=== PATIENT | female | born 1965 | race Hispanic/Latino ===

== ENCOUNTER 2021-04-08 10:30 | Inpatient (IN) | payer SELFPAY ==
[2021-04-08] MEDS ORDERED: INSULIN REGULAR IN 0.9 % NACL 100 UNIT/100 ML BAG ONE (11:06)
[2021-04-08] MEDS ORDERED: Acetaminophen 500 MG TAB ONE (11:06)
[2021-04-08 11:29] LABS: Actual Bicarbonate (HCO3v) 17 mEq/L (22-28); Analyzer IN Cardio ER; Base Excess -7.1 mEq/L (-2.0 to +3.0); Calcium, Ionized (venous) 1.09 mmol/L (1.16-1.32); Chloride (VBG) 116 mmol/L (98-106); Hemoglobin (Hb) 12.9 g/dL (11.7-16.0); Potassium (VBG) 4.24 mmol/L (3.70-5.30); Sodium 143.7 mmol/L (133-146); pH (venous) 7.35 (7.32-7.43)
[2021-04-08 11:32] LABS: Hemoglobin 12.5 g/dL (12.0-16.0); Mean Corpuscular Hemoglobin 27.9 pg (27.0-31.0); Mean Corpuscular Volume 84.8 fL (78.0-98.0); Mean Platelet Volume 7.8 fL (7.4-10.4); Platelet Count 256 thou/uL (130-400); RBC Distribution Width 13.1 % (11.5-14.5); Red Blood Cell (RBC) Count 4.49 mill/uL (4.20-5.40); White Blood Cell (WBC) Count 14.5 thou/uL (4.8-10.8)
[2021-04-08] MEDS ORDERED: Benzonatate 100 MG CAP ONE (11:37)
[2021-04-08] MEDS ORDERED: D5 1/2 NS w/20 mEq KCL 1,000 ML IV PRN (11:43)
[2021-04-08] MEDS ORDERED: Ondansetron ODT 4 MG TAB PO PRN (11:43)
[2021-04-08] MEDS ORDERED: NS 0.9% w/ 20 MEQ KCL 1,000 ML IV PRN ×2 (11:43)
[2021-04-08] MEDS ORDERED: Sodium Chloride 0.9% 1,000 ML IV PRN ×2 (11:43)
[2021-04-08] MEDS ORDERED: Dextrose 5 %-0.45 % NaCl 1,000 ML IV PRN (11:43)
[2021-04-08] MEDS ORDERED: Electrolyte Replacement Protocol 1 EACH IVPB ONE (11:43)
[2021-04-08] MEDS ORDERED: HUMULIN R 100 UNITS in Sodium Chloride 0.9% 100 ML IVPB SCH (11:45)
[2021-04-08 11:50] LABS: Band 15 % (5-11); Lymphocytes 4 % (21-51); MDiff Complete? YES; Monocytes 1 % (0-10); Neutrophil 80 % (42-75); Platelet Morphology Comment Appears Adequate; RBC Morphology Normal
[2021-04-08 12:01] LABS: ALT (SGPT) 27 U/L (8-55); AST (SGOT) 36 U/L (5-34); Albumin 2.7 g/dL (3.5-5.0); Alkaline Phosphatase 269 U/L (40-110); Anion Gap 17 mmol/L (10-20); BUN (Urea Nitrogen) 8 mg/dL (9.8-20.1); Bilirubin, Total 0.2 mg/dL (0.2-1.2); Calc. Creatinine Clearance 0 mL/min (70-130); Calcium 7.6 mg/dL (7.8-10.44); Carbon Dioxide 13 mmol/L (22-29); Chloride 117 mmol/L (98-107); Globulin 3.6 g/dL (2.4-3.5); Glucose 293 mg/dL (70-105); Magnesium 1.4 mg/dL (1.6-2.6); Phosphorus 1.1 mg/dL (2.3-4.7); Potassium 4.2 mmol/L (3.5-5.1); Protein, Total 6.3 g/dL (6.0-8.3); Sodium 143 mmol/L (136-145)
[2021-04-08] MEDS ORDERED: Electrolyte Replacement Protocol FS PRN (12:15)
[2021-04-08] MEDS ORDERED: Dexamethasone 6 MG in Sodium Chloride 0.9% 50 ML IVPB SCH (12:30)
[2021-04-08 12:55] LABS: Anion Gap 9 mmol/L (10-20); BUN (Urea Nitrogen) 6 mg/dL (9.8-20.1); Calc. Creatinine Clearance 0 mL/min (70-130); Calcium 7.7 mg/dL (7.8-10.44); Carbon Dioxide 18 mmol/L (22-29); Chloride 120 mmol/L (98-107); Glucose 202 mg/dL (70-105); Sodium 144 mmol/L (136-145)
[2021-04-08] MEDS ORDERED: Potassium Chloride 20 MEQ/100 ML PREMIX BAG ONE (13:09)
[2021-04-08] MEDS ORDERED: Lantus 1000 UNITS/10 ML VIAL SC SCH (13:45)
[2021-04-08] MEDS ORDERED: D5 1/2 NS w/20 mEq KCL 1,000 ML ONE ×2 (14:06→14:08)
[2021-04-08 15:19] LABS: Hemoglobin A1c Greater than 14.0 % (4.0-6.0)
[2021-04-08] MEDS ORDERED: MAGNESIUM SULFATE IVPB SCH (15:30)
[2021-04-08] MEDS ORDERED: POTASSIUM PHOSPHATE IVPB SCH (15:30)
[2021-04-08] MEDS ORDERED: [UNRECOGNIZED DRUG - OTHER] IVPB SCH (15:30)
[2021-04-08] MEDS: Benzonatate 100 MG CAP PO SCH ×2 (15:58→20:02)
[2021-04-08 16:32] LABS: Anion Gap 10 mmol/L (10-20); BUN (Urea Nitrogen) 6 mg/dL (9.8-20.1); Calc. Creatinine Clearance 102 mL/min (70-130); Calcium 7.7 mg/dL (7.8-10.44); Carbon Dioxide 20 mmol/L (22-29); Chloride 117 mmol/L (98-107); Glucose 202 mg/dL (70-105); Potassium 3.7 mmol/L (3.5-5.1); Sodium 143 mmol/L (136-145)
[2021-04-08] MEDS ORDERED: Potassium Chloride 20 MEQ in Lactated Ringer's 1,000 ML IV SCH (17:30)
[2021-04-08] MEDS: Enoxaparin Sodium 40 MG/0.4 ML SYRINGE SC SCH (20:02)
[2021-04-08] MEDS ORDERED: Dextrose 5% in Water 1,000 ML IV PRN (20:19)
[2021-04-08] MEDS ORDERED: Dextrose 50% Abboject 50 ML SYRINGE SLOW IVP PRN (20:19)
[2021-04-08 20:24] LABS: Anion Gap 9 mmol/L (10-20); BUN (Urea Nitrogen) 6 mg/dL (9.8-20.1); Calc. Creatinine Clearance 94 mL/min (70-130); Calcium 7.4 mg/dL (7.8-10.44); Carbon Dioxide 20 mmol/L (22-29); Chloride 115 mmol/L (98-107); Glucose 442 mg/dL (70-105); Potassium 4.1 mmol/L (3.5-5.1); Sodium 140 mmol/L (136-145)
[2021-04-08] MEDS: HumaLOG 300 UNITS/3 ML VIAL SC PRN (20:29)
[2021-04-08] MEDS: Cepastat Lozenges 1 LOZ PO PRN (22:15)
[2021-04-08] MEDS: Guaifenesin DM 100-10/5 ML UDCUP PO PRN (23:54)
[2021-04-09] MEDS: Guaifenesin DM 100-10/5 ML UDCUP PO PRN ×3 (04:00→20:46)
[2021-04-09] MEDS: HumaLOG 300 UNITS/3 ML VIAL SC PRN ×4 (05:53→20:46)
[2021-04-09] MEDS ORDERED: Potassium Phosphate 22 MMOL in Sodium Chloride 0.9% 250 ML 250 ML IVPB SCH (06:15)
[2021-04-09 06:19] LABS: ALT (SGPT) 19 U/L (8-55); AST (SGOT) 23 U/L (5-34); Albumin 2.4 g/dL (3.5-5.0); Alkaline Phosphatase 191 U/L (40-110); Anion Gap 12 mmol/L (10-20); BUN (Urea Nitrogen) 6 mg/dL (9.8-20.1); Bilirubin, Total 0.3 mg/dL (0.2-1.2); Calc. Creatinine Clearance 119 mL/min (70-130); Calcium 7.7 mg/dL (7.8-10.44); Carbon Dioxide 19 mmol/L (22-29); Chloride 113 mmol/L (98-107); Globulin 3.5 g/dL (2.4-3.5); Glucose 176 mg/dL (70-105); Magnesium 2.1 mg/dL (1.6-2.6); Phosphorus 1.4 mg/dL (2.3-4.7); Potassium 3.9 mmol/L (3.5-5.1); Protein, Total 5.9 g/dL (6.0-8.3); Sodium 140 mmol/L (136-145)
[2021-04-09 07:29] LABS: Band 37 % (5-11); Hemoglobin 10.9 g/dL (12.0-16.0); Lymphocytes 10 % (21-51); MDiff Complete? YES; Mean Corpuscular HGB CONC 32.5 g/dL (32.0-36.0); Mean Corpuscular Hemoglobin 27.4 pg (27.0-31.0); Mean Corpuscular Volume 84.2 fL (78.0-98.0); Mean Platelet Volume 7.5 fL (7.4-10.4); Monocytes 3 % (0-10); Neutrophil 50 % (42-75); Platelet Count 282 thou/uL (130-400); RBC Distribution Width 13.2 % (11.5-14.5); Red Blood Cell (RBC) Count 3.98 mill/uL (4.20-5.40); White Blood Cell (WBC) Count 15.2 thou/uL (4.8-10.8)
[2021-04-09] MEDS ORDERED: Insulin Glargine 12 UNITS in Pre-Filled Syringe 1 EACH SC SCH (09:00)
[2021-04-09] MEDS ORDERED: Enoxaparin Sodium 40 MG/0.4 ML SYRINGE SC SCH (09:00)
[2021-04-09] MEDS: Benzonatate 100 MG CAP PO SCH ×3 (09:33→20:45)
[2021-04-09] MEDS: Enoxaparin Sodium 40 MG/0.4 ML SYRINGE SC SCH ×2 (09:34→20:45)
[2021-04-09] MEDS: Lantus 1000 UNITS/10 ML VIAL SC SCH (09:35)
[2021-04-09] MEDS: Cepastat Lozenges 1 LOZ PO PRN (09:36)
[2021-04-09] MEDS: Dexamethasone 6 MG in Sodium Chloride 0.9% 50 ML IVPB SCH (10:59)
[2021-04-09] MEDS: Acetaminophen 325 MG TAB PO PRN (20:46)
[2021-04-10] MEDS: HumaLOG 300 UNITS/3 ML VIAL SC PRN ×4 (05:39→20:13)
[2021-04-10] MEDS: Acetaminophen 325 MG TAB PO PRN ×2 (05:40→16:04)
[2021-04-10 06:46] LABS: Hemoglobin 11.8 g/dL (12.0-16.0); Mean Corpuscular HGB CONC 32.1 g/dL (32.0-36.0); Mean Corpuscular Volume 83.9 fL (78.0-98.0); Mean Platelet Volume 7.6 fL (7.4-10.4); Platelet Count 262 thou/uL (130-400); Red Blood Cell (RBC) Count 4.38 mill/uL (4.20-5.40); White Blood Cell (WBC) Count 17.6 thou/uL (4.8-10.8)
[2021-04-10 07:00] LABS: ALT (SGPT) 16 U/L (8-55); AST (SGOT) 24 U/L (5-34); Albumin 2.4 g/dL (3.5-5.0); Alkaline Phosphatase 195 U/L (40-110); Anion Gap 14 mmol/L (10-20); BUN (Urea Nitrogen) 6 mg/dL (9.8-20.1); Bilirubin, Total 0.4 mg/dL (0.2-1.2); Calc. Creatinine Clearance 104 mL/min (70-130); Calcium 7.6 mg/dL (7.8-10.44); Carbon Dioxide 21 mmol/L (22-29); Chloride 105 mmol/L (98-107); Globulin 3.8 g/dL (2.4-3.5); Glucose 257 mg/dL (70-105); Potassium 3.5 mmol/L (3.5-5.1); Protein, Total 6.2 g/dL (6.0-8.3); Sodium 136 mmol/L (136-145)
[2021-04-10 07:03] LABS: Band 15 % (5-11); Lymphocytes 5 % (21-51); MDiff Complete? YES; Monocytes 1 % (0-10); Neutrophil 79 % (42-75)
[2021-04-10] MEDS ORDERED: Potassium Chloride 20 MEQ TAB PO SCH ×2 (07:30→21:15)
[2021-04-10] MEDS: Benzonatate 100 MG CAP PO SCH ×3 (07:59→20:13)
[2021-04-10] MEDS: Dexamethasone 6 MG in Sodium Chloride 0.9% 50 ML IVPB SCH (07:59)
[2021-04-10] MEDS: Enoxaparin Sodium 40 MG/0.4 ML SYRINGE SC SCH ×2 (08:00→20:13)
[2021-04-10] MEDS: Lantus 1000 UNITS/10 ML VIAL SC SCH (08:01)
[2021-04-10] MEDS ORDERED: Iopamidol-370 76% 500 ML 1 ML ONE (09:26)
[2021-04-10] MEDS: HumaLOG 300 UNITS/3 ML VIAL SC SCH ×2 (12:33→16:06)
[2021-04-10] MEDS: Guaifenesin DM 100-10/5 ML UDCUP PO PRN (16:06)
[2021-04-10] MEDS: Cepastat Lozenges 1 LOZ PO PRN ×2 (16:07→17:38)
[2021-04-10] MEDS: hydrOXYzine 25 MG TAB PO PRN (17:37)
[2021-04-10 18:48] LABS: Actual Bicarbonate (HCO3a) 23.9 mEq/L (22-28); Base Excess (BEa) 1.1 mEq/L (-2.0 to +3.0); Calcium, Ionized (arterial) 1.04 mmol/L (1.12-1.30); pH, Arterial 7.49 (7.35-7.45)
[2021-04-10 19:05] LABS: O2 Tension (PaO2), arterial 40.4 mmHg (80.0-100.0)
[2021-04-10 19:06] LABS: Puncture Site RRA
[2021-04-10] MEDS ORDERED: Lactated Ringer's 1,000 ML IV SCH (19:45)
[2021-04-10] MEDS: Lactated Ringer's 1,000 ML IV SCH (20:15)
[2021-04-11] MEDS: HumuLIN 70/30 (300 UNITS/3 ML VIAL) SC SCH ×3 (00:44→22:00)
[2021-04-11 00:48] LABS: Actual Bicarbonate (HCO3a) 25.4 mEq/L (22-28); Base Excess (BEa) 1.5 mEq/L (-2.0 to +3.0); CO2 Tension 37.4 mmHg (35.0-45.0); Calcium, Ionized (arterial) 1.06 mmol/L (1.12-1.30); Carboxyhemoglobin (COHb) 0.5 gm% (0.0-3.0); Hemoglobin (Hb) 12.4 g/dL (12.0-16.0); Potassium - ABG Lab 3.63 mmol/L (3.70-5.30); pH, Arterial 7.45 (7.35-7.45)
[2021-04-11] MEDS ORDERED: Labetalol HCl 100 MG/20 ML VIAL SLOW IVP SCH (02:15)
[2021-04-11] MEDS: hydrOXYzine 25 MG TAB PO PRN (02:17)
[2021-04-11 03:08] LABS: O2 Tension (PaO2), arterial 42.8 mmHg (80.0-100.0); Puncture Site RRA
[2021-04-11 04:22] LABS: Hemoglobin 11.4 g/dL (12.0-16.0); Mean Corpuscular HGB CONC 31.5 g/dL (32.0-36.0); Mean Corpuscular Hemoglobin 26.8 pg (27.0-31.0); Mean Corpuscular Volume 84.9 fL (78.0-98.0); Mean Platelet Volume 7.8 fL (7.4-10.4); Platelet Count 249 thou/uL (130-400); RBC Distribution Width 13.1 % (11.5-14.5); Red Blood Cell (RBC) Count 4.28 mill/uL (4.20-5.40); White Blood Cell (WBC) Count 15.1 thou/uL (4.8-10.8)
[2021-04-11 04:23] LABS: Band 53 % (5-11); Lymphocytes 6 % (21-51); MDiff Complete? YES; Metamyelocyte 1 % (0-0); Monocytes 2 % (0-10); Neutrophil 38 % (42-75); Nucleated RBC 1 % (0); Platelet Morphology Comment Appears Adequate
[2021-04-11 04:28] LABS: ALT (SGPT) 22 U/L (8-55); AST (SGOT) 44 U/L (5-34); Albumin 2.2 g/dL (3.5-5.0); Alkaline Phosphatase 228 U/L (40-110); Anion Gap 13 mmol/L (10-20); BUN (Urea Nitrogen) 8 mg/dL (9.8-20.1); Bilirubin, Total 0.7 mg/dL (0.2-1.2); Calc. Creatinine Clearance 106 mL/min (70-130); Calcium 7.6 mg/dL (7.8-10.44); Carbon Dioxide 23 mmol/L (22-29); Chloride 106 mmol/L (98-107); Globulin 3.8 g/dL (2.4-3.5); Glucose 193 mg/dL (70-105); Potassium 4.1 mmol/L (3.5-5.1); Sodium 138 mmol/L (136-145)
[2021-04-11] MEDS: Acetaminophen 325 MG TAB PO PRN (04:33)
[2021-04-11] MEDS: Lactated Ringer's 1,000 ML IV SCH ×3 (05:08→14:49)
[2021-04-11] MEDS: HumaLOG 300 UNITS/3 ML VIAL SC SCH ×3 (08:16→18:01)
[2021-04-11] MEDS: Benzonatate 100 MG CAP PO SCH ×3 (08:16→20:27)
[2021-04-11] MEDS: Enoxaparin Sodium 40 MG/0.4 ML SYRINGE SC SCH ×2 (08:18→20:36)
[2021-04-11] MEDS ORDERED: Famotidine 20 MG TAB PO SCH (09:00)
[2021-04-11] MEDS ORDERED: Dexamethasone 20 MG in Sodium Chloride 0.9% 50 ML IVPB SCH (09:00)
[2021-04-11] MEDS ORDERED: Propofol 1,000 MG/100 ML VIAL IV ONE (11:05)
[2021-04-11] MEDS ORDERED: Fentanyl CADD 100 ML ONE (11:06)
[2021-04-11] MEDS ORDERED: Ventilator Sedation Protocol 1 EACH FS ONE (11:33)
[2021-04-11] MEDS ORDERED: Electrolyte Replacement Protocol 1 EACH IVPB ONE (11:33)
[2021-04-11] MEDS ORDERED: Ventilator Sedation Protocol 1 EACH FS SCH (11:45)
[2021-04-11] MEDS ORDERED: Propofol BOLUS 1,000 MG/100 ML VIAL IV PRN (12:00)
[2021-04-11] MEDS ORDERED: Morphine 2 MG/ML VIAL SLOW IVP PRN (12:00)
[2021-04-11] MEDS ORDERED: Fentanyl BOLUS 250 ML IVPB PRN (12:00)
[2021-04-11] MEDS: Lorazepam 2 MG/ML VIAL SLOW IVP PRN ×2 (12:04→16:58)
[2021-04-11 12:06] LABS: Actual Bicarbonate (HCO3a) 24.4 mEq/L (22-28); Base Excess (BEa) -0.4 mEq/L (-2.0 to +3.0); CO2 Tension 40.5 mmHg (35.0-45.0); Calcium, Ionized (arterial) 1.04 mmol/L (1.12-1.30); Hemoglobin (Hb) 11.2 g/dL (12.0-16.0); Potassium - ABG Lab 4.26 mmol/L (3.70-5.30)
[2021-04-11 12:07] LABS: ALV-art Gradient 609.175 mmHg (0-20); O2 Tension (PaO2), arterial 53.2 mmHg (80.0-100.0); Puncture Site LRA
[2021-04-11] MEDS: Cefepime 2 GM in Sodium Chloride 0.9% 100 ML IVPB SCH ×2 (12:29→20:35)
[2021-04-11] MEDS ORDERED: Succinylcholine Chloride 200 MG/10 ML VIAL IV SCH (13:15)
[2021-04-11] MEDS ORDERED: Rocuronium Bromide 50 MG/5 ML VIAL IVP PRN (13:28)
[2021-04-11] MEDS ORDERED: Sodium Chloride 0.9% 500 ML IVPB SCH (13:30)
[2021-04-11] MEDS ORDERED: Rocuronium Bromide 50 MG/5 ML VIAL IVP SCH (13:30)
[2021-04-11 14:19] LABS: Actual Bicarbonate (HCO3a) 25.6 mEq/L (22-28); Base Excess (BEa) 0.2 mEq/L (-2.0 to +3.0); CO2 Tension 44.1 mmHg (35.0-45.0); Calcium, Ionized (arterial) 1.02 mmol/L (1.12-1.30); Carboxyhemoglobin (COHb) 0.2 gm% (0.0-3.0); O2 Tension (PaO2), arterial 89.7 mmHg (80.0-100.0); Potassium - ABG Lab 4.24 mmol/L (3.70-5.30); pH, Arterial 7.38 (7.35-7.45)
[2021-04-11 14:24] LABS: Puncture Site RRA
[2021-04-11 14:25] LABS: ALV-art Gradient 496.875 mmHg (0-20)
[2021-04-11] MEDS: HumaLOG 300 UNITS/3 ML VIAL SC PRN ×2 (14:52→17:07)
[2021-04-11] MEDS: Vecuronium Bromide 50 MG in Sodium Chloride 0.9% 250 ML 250 ML IV SCH (16:16)
[2021-04-11 16:17] LABS: Bilirubin Moderate (Negative); Blood, Urine Small (Negative); Glucose, Urine (Dipstick) 100 mg/dL (Negative); Ketone, Urine 15 mg/dL (Negative); Leukocyte Negative (Negative); Nitrite Positive (Negative); Protein, Urine (Dipstick) 100 mg/dL (Neg-Trace); pH, Urine 5.5 (5.0-9.0)
[2021-04-11 16:21] LABS: Clarity Hazy (Clear); Specific Gravity, Urine 1.028 (1.002-1.036)
[2021-04-11 16:24] LABS: WBC/HPF 0-3 HPF (0-3)
[2021-04-11 16:25] LABS: Bacteria/HPF 1+ HPF (None Seen); Transitional Epithelial 0-3 HPF (None Seen)
[2021-04-11 16:26] LABS: Urine Culture Reflex No No
[2021-04-11] MEDS: Famotidine/PF 20 mg/2ml Vial SLOW IVP SCH (20:36)
[2021-04-11] MEDS ORDERED: Fat Emulsion 250 ML, Multivitamins, Adult 10 ML, TRACE ELEMENT CONCENTRATE 1 ML in D15W... IV SCH (22:00)
[2021-04-12] MEDS ORDERED: Albumin 5% 0 ML ONE (03:10)
[2021-04-12 04:12] LABS: Band 56 % (5-11); Hemoglobin 8.9 g/dL (12.0-16.0); Hypochromia SLIGHT = 6-15 cells (100X) (0-5/hpf); Lymphocytes 2 % (21-51); MDiff Complete? YES; Mean Corpuscular HGB CONC 32.4 g/dL (32.0-36.0); Mean Corpuscular Hemoglobin 27.7 pg (27.0-31.0); Mean Corpuscular Volume 85.6 fL (78.0-98.0); Mean Platelet Volume 8.8 fL (7.4-10.4); Metamyelocyte 1 % (0-0); Monocytes 9 % (0-10); Neutrophil 32 % (42-75); Platelet Count 240 thou/uL (130-400); Platelet Morphology Comment Appears Adequate; RBC Distribution Width 13.2 % (11.5-14.5); Red Blood Cell (RBC) Count 3.22 mill/uL (4.20-5.40); White Blood Cell (WBC) Count 16.7 thou/uL (4.8-10.8)
[2021-04-12 04:15] LABS: ALT (SGPT) 15 U/L (8-55); AST (SGOT) 22 U/L (5-34); Albumin 1.8 g/dL (3.5-5.0); Alkaline Phosphatase 163 U/L (40-110); Anion Gap 13 mmol/L (10-20); BUN (Urea Nitrogen) 23 mg/dL (9.8-20.1); Bilirubin, Total 0.5 mg/dL (0.2-1.2); Calc. Creatinine Clearance 101 mL/min (70-130); Calcium 7.4 mg/dL (7.8-10.44); Carbon Dioxide 22 mmol/L (22-29); Chloride 108 mmol/L (98-107); Globulin 3.6 g/dL (2.4-3.5); Glucose 222 mg/dL (70-105); Potassium 4.9 mmol/L (3.5-5.1); Protein, Total 5.4 g/dL (6.0-8.3); Sodium 138 mmol/L (136-145)
[2021-04-12] MEDS: Lactated Ringer's 1,000 ML IV SCH (05:05)
[2021-04-12] MEDS: Cefepime 2 GM in Sodium Chloride 0.9% 100 ML IVPB SCH (05:05)
[2021-04-12] MEDS: HumaLOG 300 UNITS/3 ML VIAL SC PRN ×4 (05:36→19:45)
[2021-04-12] MEDS ORDERED: Fentanyl CADD 100 ML ONE (08:17)
[2021-04-12] MEDS: Enoxaparin Sodium 40 MG/0.4 ML SYRINGE SC SCH ×2 (08:22→19:25)
[2021-04-12] MEDS: Famotidine/PF 20 mg/2ml Vial SLOW IVP SCH ×2 (08:22→19:25)
[2021-04-12] MEDS: Fentanyl CADD 100 ML IV SCH (08:23)
[2021-04-12] MEDS ORDERED: Vancomycin HCl 1.5 GM in Sodium Chloride 0.9% 250 ML 300 ML IVPB SCH (09:00)
[2021-04-12] MEDS: HumaLOG 300 UNITS/3 ML VIAL SC SCH ×3 (10:14→17:26)
[2021-04-12] MEDS: Benzonatate 100 MG CAP PO SCH (10:14)
[2021-04-12] MEDS: HumuLIN 70/30 (300 UNITS/3 ML VIAL) SC SCH ×2 (10:37→21:36)
[2021-04-12] MEDS ORDERED: Piperacillin/Tazobactam 3.375 GM in Sodium Chloride 0.9% 100 ML IVPB SCH (11:00)
[2021-04-12] MEDS ORDERED: Piperacillin/Tazobactam 4.5 GM in Sodium Chloride 0.9% 100 ML IVPB SCH (12:00)
[2021-04-12] MEDS ORDERED: Benzonatate 100 MG CAP PO PRN (13:09)
[2021-04-12] MEDS: Piperacillin/Tazobactam 3.375 GM in Sodium Chloride 0.9% 100 ML IVPB SCH ×2 (16:11→23:12)
[2021-04-12] MEDS: Sodium Chloride 0.9% 1,000 ML IV SCH (16:15)
[2021-04-12] MEDS: Vecuronium Bromide 50 MG in Sodium Chloride 0.9% 250 ML 250 ML IV SCH (18:04)
[2021-04-12] MEDS ORDERED: Furosemide 20 MG/2 ML VIAL ONE (18:06)
[2021-04-12] MEDS ORDERED: Vancomycin 1 GM in Premix Bag 1 BAG IVPB SCH (21:00)
[2021-04-13] MEDS: Sodium Chloride 0.9% 1,000 ML IV SCH ×3 (00:15→22:45)
[2021-04-13 04:09] LABS: Hemoglobin 9.2 g/dL (12.0-16.0); Mean Corpuscular Hemoglobin 27.4 pg (27.0-31.0); Mean Corpuscular Volume 85.5 fL (78.0-98.0); Mean Platelet Volume 8.9 fL (7.4-10.4); Platelet Count 278 thou/uL (130-400); RBC Distribution Width 13.1 % (11.5-14.5); Red Blood Cell (RBC) Count 3.36 mill/uL (4.20-5.40); White Blood Cell (WBC) Count 23.5 thou/uL (4.8-10.8)
[2021-04-13 04:23] LABS: ALT (SGPT) 13 U/L (8-55); AST (SGOT) 17 U/L (5-34); Albumin 1.8 g/dL (3.5-5.0); Alkaline Phosphatase 170 U/L (40-110); Anion Gap 11 mmol/L (10-20); BUN (Urea Nitrogen) 29 mg/dL (9.8-20.1); Bilirubin, Total 0.6 mg/dL (0.2-1.2); Calc. Creatinine Clearance 111 mL/min (70-130); Calcium 6.8 mg/dL (7.8-10.44); Carbon Dioxide 24 mmol/L (22-29); Chloride 108 mmol/L (98-107); Globulin 2.5 g/dL (2.4-3.5); Glucose 267 mg/dL (70-105); Potassium 3.9 mmol/L (3.5-5.1); Protein, Total 4.3 g/dL (6.0-8.3); Sodium 139 mmol/L (136-145)
[2021-04-13 04:34] LABS: Band 2 % (5-11); Lymphocytes 2 % (21-51); MDiff Complete? YES; Metamyelocyte 6 % (0-0); Neutrophil 90 % (42-75); Nucleated RBC 1 % (0); Platelet Morphology Comment Appears Adequate
[2021-04-13] MEDS: Piperacillin/Tazobactam 3.375 GM in Sodium Chloride 0.9% 100 ML IVPB SCH ×3 (08:24→21:31)
[2021-04-13] MEDS: Enoxaparin Sodium 40 MG/0.4 ML SYRINGE SC SCH ×2 (08:50→20:25)
[2021-04-13] MEDS: Famotidine/PF 20 mg/2ml Vial SLOW IVP SCH ×2 (08:51→20:25)
[2021-04-13] MEDS: HumaLOG 300 UNITS/3 ML VIAL SC SCH (08:52)
[2021-04-13] MEDS: HumuLIN 70/30 (300 UNITS/3 ML VIAL) SC SCH (08:53)
[2021-04-13] MEDS: Fentanyl CADD 100 ML IV SCH (09:11)
[2021-04-13] MEDS: HumaLOG 300 UNITS/3 ML VIAL SC PRN ×2 (15:50→22:27)
[2021-04-13] MEDS: Lorazepam 2 MG/ML VIAL SLOW IVP PRN (18:34)
[2021-04-13] MEDS ORDERED: Vecuronium 10 MG VIAL IV SCH (19:15)
[2021-04-13] MEDS ORDERED: Sterile Water 10 ML ONE (19:42)
[2021-04-13 20:26] LABS: Vancomycin, Trough 5.3 ug/mL
[2021-04-13] MEDS ORDERED: Lantus 1000 UNITS/10 ML VIAL SC SCH (21:00)
[2021-04-14] MEDS: Vecuronium Bromide 50 MG in Sodium Chloride 0.9% 250 ML 250 ML IV SCH (01:48)
[2021-04-14 03:05] LABS: Actual Bicarbonate (HCO3a) 18.9 mEq/L (22-28); Base Excess (BEa) -7.5 mEq/L (-2.0 to +3.0); Calcium, Ionized (arterial) 1.08 mmol/L (1.12-1.30); Carboxyhemoglobin (COHb) 0.1 gm% (0.0-3.0); Hemoglobin (Hb) 10.6 g/dL (12.0-16.0); O2 Tension (PaO2), arterial 75.9 mmHg (80.0-100.0); Potassium - ABG Lab 4.68 mmol/L (3.70-5.30); pH, Arterial 7.27 (7.35-7.45)
[2021-04-14 04:02] LABS: Puncture Site Arterial Line
[2021-04-14 04:22] LABS: Actual Bicarbonate (HCO3a) 20.6 mEq/L (22-28); Base Excess (BEa) -7.7 mEq/L (-2.0 to +3.0); CO2 Tension 54.6 mmHg (35.0-45.0); Calcium, Ionized (arterial) 1.06 mmol/L (1.12-1.30); Carboxyhemoglobin (COHb) 0.2 gm% (0.0-3.0); O2 Tension (PaO2), arterial 66.8 mmHg (80.0-100.0); Potassium - ABG Lab 4.33 mmol/L (3.70-5.30)
[2021-04-14 04:43] LABS: Puncture Site Arterial Line; pH, Arterial 7.19 (7.35-7.45)
[2021-04-14] MEDS ORDERED: Fentanyl CADD 0 ML ONE (04:44)
[2021-04-14] MEDS: Fentanyl CADD 100 ML IV SCH (04:47)
[2021-04-14] MEDS: Piperacillin/Tazobactam 3.375 GM in Sodium Chloride 0.9% 100 ML IVPB SCH (04:48)
[2021-04-14 05:01] LABS: Band 20 % (5-11); Hemoglobin 9.8 g/dL (12.0-16.0); Hypochromia SLIGHT = 6-15 cells (100X) (0-5/hpf); Lymphocytes 6 % (21-51); MDiff Complete? YES; Mean Corpuscular HGB CONC 30.8 g/dL (32.0-36.0); Mean Corpuscular Hemoglobin 26.6 pg (27.0-31.0); Mean Corpuscular Volume 86.4 fL (78.0-98.0); Monocytes 1 % (0-10); Neutrophil 73 % (42-75); Platelet Count 328 thou/uL (130-400); Platelet Morphology Comment Appears Adequate; RBC Distribution Width 13.4 % (11.5-14.5); Red Blood Cell (RBC) Count 3.67 mill/uL (4.20-5.40); White Blood Cell (WBC) Count 27.5 thou/uL (4.8-10.8)
[2021-04-14 05:15] LABS: ALT (SGPT) 13 U/L (8-55); AST (SGOT) 37 U/L (5-34); Albumin 2.5 g/dL (3.5-5.0); Alkaline Phosphatase 243 U/L (40-110); Anion Gap 15 mmol/L (10-20); BUN (Urea Nitrogen) 37 mg/dL (9.8-20.1); Bilirubin, Total 0.9 mg/dL (0.2-1.2); Calc. Creatinine Clearance 103 mL/min (70-130); Calcium 7.4 mg/dL (7.8-10.44); Carbon Dioxide 19 mmol/L (22-29); Chloride 111 mmol/L (98-107); Globulin 3.5 g/dL (2.4-3.5); Glucose 317 mg/dL (70-105); Potassium 4.3 mmol/L (3.5-5.1); Sodium 141 mmol/L (136-145)
[2021-04-14] MEDS: HumaLOG 300 UNITS/3 ML VIAL SC PRN ×3 (05:54→21:44)
[2021-04-14] MEDS: Famotidine/PF 20 mg/2ml Vial SLOW IVP SCH ×2 (07:47→20:58)
[2021-04-14] MEDS: Enoxaparin Sodium 40 MG/0.4 ML SYRINGE SC SCH ×2 (07:47→20:58)
[2021-04-14 08:37] LABS: Base Excess (BEa) -6.8 mEq/L (-2.0 to +3.0); CO2 Tension 45.5 mmHg (35.0-45.0); Calcium, Ionized (arterial) 1.03 mmol/L (1.12-1.30); Carboxyhemoglobin (COHb) 0.1 gm% (0.0-3.0); Hemoglobin (Hb) 10.2 g/dL (12.0-16.0); O2 Tension (PaO2), arterial 70.8 mmHg (80.0-100.0); Potassium - ABG Lab 4.25 mmol/L (3.70-5.30); pH, Arterial 7.26 (7.35-7.45)
[2021-04-14 08:38] LABS: Puncture Site Arterial Line
[2021-04-14 08:39] LABS: ALV-art Gradient 157.525 mmHg (0-20)
[2021-04-14] MEDS: Cefepime 1 GM in Sodium Chloride 0.9% 100 ML IVPB SCH ×2 (09:52→20:58)
[2021-04-14] MEDS: Ivermectin 3 MG TAB PO SCH (09:53)
[2021-04-14] MEDS: Zinc Sulfate 220 MG CAP PO SCH (09:53)
[2021-04-14] MEDS: Ascorbic Acid 500 mg Chewable Tablet PER TUBE SCH ×2 (09:53→20:58)
[2021-04-14] MEDS: methylPREDNISolone Sod Succ/PF 80 MG in Sodium Chloride 0.9% 250 ML 250 ML IVPB SCH (09:53)
[2021-04-14] MEDS: Sodium Chloride 0.9% 1,000 ML IV SCH ×2 (11:30→20:59)
[2021-04-14] MEDS ORDERED: Fentanyl CADD 100 ML ONE (20:54)
[2021-04-14] MEDS ORDERED: Lantus 1000 UNITS/10 ML VIAL SC SCH (21:00)
[2021-04-14] MEDS: Cholecalciferol 1,000 UNITS (25 MCG) TAB PER TUBE SCH (21:18)
[2021-04-15] MEDS: Fentanyl CADD 100 ML IV SCH ×2 (00:10→23:06)
[2021-04-15 04:59] LABS: Band 2 % (5-11); Hemoglobin 8.8 g/dL (12.0-16.0); MDiff Complete? YES; Mean Corpuscular HGB CONC 32.2 g/dL (32.0-36.0); Mean Corpuscular Hemoglobin 28.1 pg (27.0-31.0); Mean Corpuscular Volume 87.3 fL (78.0-98.0); Mean Platelet Volume 8.7 fL (7.4-10.4); Metamyelocyte 4 % (0-0); Neutrophil 94 % (42-75); Platelet Count 280 thou/uL (130-400); Platelet Morphology Comment Appears Adequate; RBC Distribution Width 13.8 % (11.5-14.5); Red Blood Cell (RBC) Count 3.14 mill/uL (4.20-5.40); White Blood Cell (WBC) Count 19.6 thou/uL (4.8-10.8)
[2021-04-15 05:02] LABS: ALT (SGPT) 26 U/L (8-55); AST (SGOT) 52 U/L (5-34); Albumin 2.1 g/dL (3.5-5.0); Alkaline Phosphatase 250 U/L (40-110); Anion Gap 10 mmol/L (10-20); BUN (Urea Nitrogen) 50 mg/dL (9.8-20.1); Bilirubin, Total 0.4 mg/dL (0.2-1.2); Calc. Creatinine Clearance 88 mL/min (70-130); Calcium 7.2 mg/dL (7.8-10.44); Carbon Dioxide 23 mmol/L (22-29); Chloride 113 mmol/L (98-107); Globulin 3.6 g/dL (2.4-3.5); Glucose 278 mg/dL (70-105); Potassium 4.9 mmol/L (3.5-5.1); Protein, Total 5.7 g/dL (6.0-8.3); Sodium 141 mmol/L (136-145)
[2021-04-15] MEDS ORDERED: Vecuronium 10 MG VIAL IVP PRN (07:24)
[2021-04-15 07:39] LABS: Actual Bicarbonate (HCO3a) 22.2 mEq/L (22-28); Base Excess (BEa) -3.9 mEq/L (-2.0 to +3.0); CO2 Tension 45.4 mmHg (35.0-45.0); Calcium, Ionized (arterial) 1.07 mmol/L (1.12-1.30); Hemoglobin (Hb) 9.2 g/dL (12.0-16.0); O2 Tension (PaO2), arterial 72.1 mmHg (80.0-100.0); Potassium - ABG Lab 4.63 mmol/L (3.70-5.30); pH, Arterial 7.31 (7.35-7.45)
[2021-04-15 07:46] LABS: Puncture Site RRA
[2021-04-15] MEDS: Enoxaparin Sodium 40 MG/0.4 ML SYRINGE SC SCH ×2 (08:24→21:10)
[2021-04-15] MEDS: Zinc Sulfate 220 MG CAP PO SCH (08:25)
[2021-04-15] MEDS: Famotidine/PF 20 mg/2ml Vial SLOW IVP SCH ×2 (08:25→21:09)
[2021-04-15] MEDS: Ascorbic Acid 500 mg Chewable Tablet PER TUBE SCH ×2 (08:25→21:09)
[2021-04-15] MEDS: Ivermectin 3 MG TAB PO SCH (08:25)
[2021-04-15] MEDS: Cefepime 1 GM in Sodium Chloride 0.9% 100 ML IVPB SCH ×2 (08:26→21:09)
[2021-04-15] MEDS: HumaLOG 300 UNITS/3 ML VIAL SC PRN ×4 (09:19→23:17)
[2021-04-15] MEDS: methylPREDNISolone Sod Succ/PF 80 MG in Sodium Chloride 0.9% 250 ML 250 ML IVPB SCH (10:16)
[2021-04-15] MEDS ORDERED: Lidocaine 1% (PF) 30 ML VIAL ONE (12:58)
[2021-04-15] MEDS ORDERED: Lidocaine 1% (PF) 30 ML VIAL SC SCH (15:00)
[2021-04-15] MEDS: Norepinephrine 8 MG/0.9% NS 250 ML IVPB SCH ×2 (16:35→21:09)
[2021-04-15 19:17] LABS: Hemoglobin 7.5 g/dL (12.0-16.0); Mean Corpuscular HGB CONC 31.1 g/dL (32.0-36.0); Mean Corpuscular Hemoglobin 27.6 pg (27.0-31.0); Mean Corpuscular Volume 88.5 fL (78.0-98.0); Mean Platelet Volume 8.9 fL (7.4-10.4); Platelet Count 300 thou/uL (130-400); RBC Distribution Width 13.9 % (11.5-14.5)
[2021-04-15 19:30] LABS: Band 27 % (5-11); MDiff Complete? YES; Metamyelocyte 2 % (0-0); Myelocyte 1 % (0-0); Neutrophil 70 % (42-75); Nucleated RBC 1 % (0); Platelet Morphology Comment Appears Adequate; Polychromasia SLIGHT = 2-3 cells (100X) (0-2/hpf)
[2021-04-15] MEDS ORDERED: Vasopressin 20 UNIT, Admixture Fee 1 EACH in Sodium Chloride 0.9% 50 ML IV SCH (20:00)
[2021-04-15] MEDS: Sodium Chloride 0.9% 1,000 ML IV SCH (20:11)
[2021-04-15] MEDS ORDERED: Lantus 1000 UNITS/10 ML VIAL SC SCH (21:00)
[2021-04-15] MEDS: Cholecalciferol 1,000 UNITS (25 MCG) TAB PER TUBE SCH (21:09)
[2021-04-16] MEDS: HumaLOG 300 UNITS/3 ML VIAL SC PRN ×5 (00:20→16:20)
[2021-04-16] MEDS ORDERED: Fentanyl CADD 100 ML ONE ×2 (00:26→22:36)
[2021-04-16] MEDS: Norepinephrine 8 MG/0.9% NS 250 ML IVPB SCH ×3 (00:45→21:00)
[2021-04-16 04:53] LABS: Hemoglobin 7.7 g/dL (12.0-16.0); Mean Corpuscular HGB CONC 31.5 g/dL (32.0-36.0); Mean Corpuscular Hemoglobin 27.3 pg (27.0-31.0); Mean Corpuscular Volume 86.8 fL (78.0-98.0); Platelet Count 199 thou/uL (130-400); RBC Distribution Width 14.4 % (11.5-14.5); Red Blood Cell (RBC) Count 2.82 mill/uL (4.20-5.40); White Blood Cell (WBC) Count 30.4 thou/uL (4.8-10.8)
[2021-04-16 04:54] LABS: Band 37 % (5-11); Hypochromia SLIGHT = 6-15 cells (100X) (0-5/hpf); Lymphocytes 2 % (21-51); MDiff Complete? YES; Monocytes 1 % (0-10); Neutrophil 60 % (42-75); Nucleated RBC 1 % (0); Platelet Morphology Comment Appears Adequate
[2021-04-16 05:08] LABS: ALT (SGPT) 21 U/L (8-55); AST (SGOT) 66 U/L (5-34); Albumin 2.5 g/dL (3.5-5.0); Alkaline Phosphatase 168 U/L (40-110); Anion Gap 11 mmol/L (10-20); BUN (Urea Nitrogen) 64 mg/dL (9.8-20.1); Bilirubin, Total 0.6 mg/dL (0.2-1.2); Calc. Creatinine Clearance 50 mL/min (70-130); Carbon Dioxide 21 mmol/L (22-29); Chloride 113 mmol/L (98-107); Globulin 2.7 g/dL (2.4-3.5); Glucose 323 mg/dL (70-105); Potassium 5.2 mmol/L (3.5-5.1); Protein, Total 5.2 g/dL (6.0-8.3); Sodium 140 mmol/L (136-145)
[2021-04-16 07:06] LABS: Actual Bicarbonate (HCO3a) 19.6 mEq/L (22-28); Base Excess (BEa) -8.4 mEq/L (-2.0 to +3.0); CO2 Tension 53.5 mmHg (35.0-45.0); Calcium, Ionized (arterial) 1.07 mmol/L (1.12-1.30); Carboxyhemoglobin (COHb) 0.2 gm% (0.0-3.0); Hemoglobin (Hb) 8.5 g/dL (12.0-16.0); O2 Tension (PaO2), arterial 76.4 mmHg (80.0-100.0); Potassium - ABG Lab 5.04 mmol/L (3.70-5.30)
[2021-04-16 07:08] LABS: Puncture Site RRA; pH, Arterial 7.18 (7.35-7.45)
[2021-04-16 07:09] LABS: ALV-art Gradient 284.525 mmHg (0-20)
[2021-04-16] MEDS: Enoxaparin Sodium 40 MG/0.4 ML SYRINGE SC SCH ×2 (08:43→20:13)
[2021-04-16] MEDS: Cefepime 1 GM in Sodium Chloride 0.9% 100 ML IVPB SCH ×2 (08:43→20:13)
[2021-04-16] MEDS: Zinc Sulfate 220 MG CAP PO SCH (08:44)
[2021-04-16] MEDS: Ascorbic Acid 500 mg Chewable Tablet PER TUBE SCH ×2 (08:44→20:13)
[2021-04-16] MEDS: Famotidine/PF 20 mg/2ml Vial SLOW IVP SCH ×2 (08:44→20:14)
[2021-04-16] MEDS: methylPREDNISolone Sod Succ/PF 80 MG in Sodium Chloride 0.9% 250 ML 250 ML IVPB SCH (08:45)
[2021-04-16] MEDS: Ivermectin 3 MG TAB PO SCH (08:45)
[2021-04-16 10:48] LABS: Actual Bicarbonate (HCO3a) 18.6 mEq/L (22-28); Base Excess (BEa) -5.3 mEq/L (-2.0 to +3.0); CO2 Tension 29.4 mmHg (35.0-45.0); Carboxyhemoglobin (COHb) 0.2 gm% (0.0-3.0); Hemoglobin (Hb) 7.3 g/dL (12.0-16.0); Potassium - ABG Lab 4.65 mmol/L (3.70-5.30); Puncture Site RRA; pH, Arterial 7.42 (7.35-7.45)
[2021-04-16] MEDS: Albumin 25% 25 GM/100 ML BOT IVPB SCH (18:13)
[2021-04-16 18:59] LABS: Bacteria/HPF None Seen HPF (None Seen); Bilirubin Negative (Negative); Blood, Urine 1+ (Negative); Clarity Extra Turbid (Clear); Glucose, Urine (Dipstick) Normal (Negative); Ketone, Urine Trace mg/dL (Negative); Leukocyte Negative Leu/uL (Negative); Nitrite Negative (Negative); Protein, Urine (Dipstick) 30 mg/dL (Neg-Trace); RBC/HPF 21-50 HPF (0-3); Specific Gravity, Urine 1.016 (1.002-1.036); Squamous Epithelial 0-3 HPF (0-3); Urobilinogen Normal mg/dL (Less than 2); Yeast-Budding 4+ HPF (None Seen)
[2021-04-16 19:20] LABS: Creatinine, Urine 52.91 mg/dL (47-110)
[2021-04-16] MEDS: Metoclopramide 10 MG/10 ML UDCUP PO SCH (20:14)
[2021-04-16] MEDS: Cholecalciferol 1,000 UNITS (25 MCG) TAB PER TUBE SCH (20:25)
[2021-04-16 20:58] LABS: Actual Bicarbonate (HCO3a) 12.7 mEq/L (22-28); Base Excess (BEa) -13.4 mEq/L (-2.0 to +3.0); CO2 Tension 30.1 mmHg (35.0-45.0); Carboxyhemoglobin (COHb) 0.8 gm% (0.0-3.0); Hemoglobin (Hb) 7.3 g/dL (12.0-16.0); Potassium - ABG Lab 4.66 mmol/L (3.70-5.30)
[2021-04-16 20:58] LABS: Hemoglobin 5.5 g/dL (12.0-16.0); Mean Corpuscular HGB CONC 32.8 g/dL (32.0-36.0); Mean Corpuscular Hemoglobin 27.8 pg (27.0-31.0); Mean Corpuscular Volume 84.7 fL (78.0-98.0); Mean Platelet Volume 9.2 fL (7.4-10.4); Platelet Count 132 thou/uL (130-400); RBC Distribution Width 14.2 % (11.5-14.5); Red Blood Cell (RBC) Count 1.97 mill/uL (4.20-5.40); White Blood Cell (WBC) Count 24.3 thou/uL (4.8-10.8)
[2021-04-16] MEDS ORDERED: Lantus 1000 UNITS/10 ML VIAL SC SCH (21:00)
[2021-04-16 21:04] LABS: pH, Arterial 7.24 (7.35-7.45)
[2021-04-16 21:05] LABS: O2 Tension (PaO2), arterial 58.2 mmHg (80.0-100.0)
[2021-04-16 21:06] LABS: Puncture Site RRA
[2021-04-16 21:07] LABS: ALV-art Gradient 296.325 mmHg (0-20)
[2021-04-16 21:20] LABS: Anion Gap 18 mmol/L (10-20); BUN (Urea Nitrogen) 75 mg/dL (9.8-20.1); Band 17 % (5-11); Bite Cells SLIGHT = 2-5 cells (100X) (0-1/hpf); Burr Cells SLIGHT = 2-5 cells (100X) (0-1/hpf); Calc. Creatinine Clearance 36 mL/min (70-130); Calcium 6.8 mg/dL (7.8-10.44); Carbon Dioxide 14 mmol/L (22-29); Chloride 116 mmol/L (98-107); Glucose 294 mg/dL (70-105); Lymphocytes 5 % (21-51); MDiff Complete? YES; Metamyelocyte 2 % (0-0); Monocytes 2 % (0-10); Myelocyte 1 % (0-0); Neutrophil 73 % (42-75); Nucleated RBC 1 % (0); Platelet Morphology Comment Appears Adequate; Polychromasia SLIGHT = 2-3 cells (100X) (0-2/hpf); Potassium 5.1 mmol/L (3.5-5.1); Sodium 143 mmol/L (136-145)
[2021-04-16 21:45] LABS: CKMB 1.5 ng/mL (0-6.6)
[2021-04-16] MEDS: Sodium Bicarbonate 150 MEQ in Dextrose 5% in Water 1,000 ML IV SCH (22:24)
[2021-04-16] MEDS: Fentanyl CADD 100 ML IV SCH (22:38)
[2021-04-17] MEDS: Albumin 25% 25 GM/100 ML BOT IVPB SCH ×6 (00:10→22:04)
[2021-04-17] MEDS: HumaLOG 300 UNITS/3 ML VIAL SC PRN ×6 (00:10→20:25)
[2021-04-17 05:51] LABS: ALT (SGPT) 14 U/L (8-55); AST (SGOT) 39 U/L (5-34); Albumin 2.8 g/dL (3.5-5.0); Alkaline Phosphatase 126 U/L (40-110); Anion Gap 13 mmol/L (10-20); BUN (Urea Nitrogen) 80 mg/dL (9.8-20.1); Bilirubin, Total 0.9 mg/dL (0.2-1.2); Calc. Creatinine Clearance 36 mL/min (70-130); Calcium 6.9 mg/dL (7.8-10.44); Carbon Dioxide 20 mmol/L (22-29); Chloride 112 mmol/L (98-107); Globulin 2.3 g/dL (2.4-3.5); Glucose 265 mg/dL (70-105); Potassium 4.4 mmol/L (3.5-5.1); Protein, Total 5.1 g/dL (6.0-8.3); Sodium 141 mmol/L (136-145)
[2021-04-17 05:52] LABS: Anisocytosis MODERATE=16-30 cells (100X) (0-5/hpf); Band 20 % (5-11); Hemoglobin 9.1 g/dL (12.0-16.0); Lymphocytes 2 % (21-51); MDiff Complete? YES; Mean Corpuscular HGB CONC 34.9 g/dL (32.0-36.0); Mean Corpuscular Hemoglobin 29.7 pg (27.0-31.0); Mean Corpuscular Volume 84.9 fL (78.0-98.0); Mean Platelet Volume 9.7 fL (7.4-10.4); Metamyelocyte 1 % (0-0); Myelocyte 1 % (0-0); Neutrophil 76 % (42-75); Nucleated RBC 4 % (0); Platelet Count 91 thou/uL (130-400); Platelet Morphology Comment Appears Decreased; Polychromasia SLIGHT = 2-3 cells (100X) (0-2/hpf); Red Blood Cell (RBC) Count 3.06 mill/uL (4.20-5.40)
[2021-04-17] MEDS: Metoclopramide 10 MG/10 ML UDCUP PO SCH ×4 (06:24→20:37)
[2021-04-17 07:51] LABS: Actual Bicarbonate (HCO3a) 18.4 mEq/L (22-28); Base Excess (BEa) -5.4 mEq/L (-2.0 to +3.0); CO2 Tension 30.7 mmHg (35.0-45.0); Calcium, Ionized (arterial) 0.98 mmol/L (1.12-1.30); Carboxyhemoglobin (COHb) 0.9 gm% (0.0-3.0); Hemoglobin (Hb) 11.6 g/dL (12.0-16.0); Potassium - ABG Lab 4.12 mmol/L (3.70-5.30)
[2021-04-17 07:53] LABS: O2 Tension (PaO2), arterial 52.3 mmHg (80.0-100.0); Puncture Site RRA
[2021-04-17 07:54] LABS: ALV-art Gradient 301.475 mmHg (0-20)
[2021-04-17] MEDS ORDERED: Albumin 25% 25 GM/100 ML BOT IVPB ONE (08:24)
[2021-04-17] MEDS: methylPREDNISolone Sod Succ/PF 80 MG in Sodium Chloride 0.9% 250 ML 250 ML IVPB SCH (08:36)
[2021-04-17] MEDS: Sodium Bicarbonate 150 MEQ in Dextrose 5% in Water 1,000 ML IV SCH ×2 (08:36→19:24)
[2021-04-17] MEDS: Ascorbic Acid 500 mg Chewable Tablet PER TUBE SCH ×2 (08:36→20:37)
[2021-04-17] MEDS: Polyethylene Glycol 3350 17 GM Packet PER TUBE SCH (08:36)
[2021-04-17] MEDS: Zinc Sulfate 220 MG CAP PO SCH (08:37)
[2021-04-17] MEDS: Cefepime 1 GM in Sodium Chloride 0.9% 100 ML IVPB SCH ×2 (08:37→20:36)
[2021-04-17] MEDS: Lantus 1000 UNITS/10 ML VIAL SC SCH ×2 (08:37→20:25)
[2021-04-17] MEDS: Senokot 8.6 MG TAB PO SCH ×2 (08:37→20:37)
[2021-04-17] MEDS: Famotidine/PF 20 mg/2ml Vial SLOW IVP SCH ×2 (08:37→20:37)
[2021-04-17] MEDS: Enoxaparin Sodium 40 MG/0.4 ML SYRINGE SC SCH (08:37)
[2021-04-17] MEDS: Ivermectin 3 MG TAB PO SCH (08:39)
[2021-04-17 14:43] VITALS: BP 155/83
[2021-04-17] MEDS: Lorazepam 2 MG/ML VIAL SLOW IVP PRN ×3 (17:53→22:31)
[2021-04-17] MEDS ORDERED: Fentanyl CADD 100 ML ONE (18:07)
[2021-04-17] MEDS: Fentanyl CADD 100 ML IV SCH (18:12)
[2021-04-17] MEDS: Cholecalciferol 1,000 UNITS (25 MCG) TAB PER TUBE SCH (20:37)
[2021-04-18] MEDS: HumaLOG 300 UNITS/3 ML VIAL SC PRN ×5 (00:28→20:48)
[2021-04-18] MEDS: Propofol 1,000 MG/100 ML VIAL IV PRN ×2 (00:57→18:39)
[2021-04-18] MEDS: Albumin 25% 25 GM/100 ML BOT IVPB SCH (03:29)
[2021-04-18 04:35] LABS: ALT (SGPT) 8 U/L (8-55); AST (SGOT) 22 U/L (5-34); Albumin 3.1 g/dL (3.5-5.0); Alkaline Phosphatase 84 U/L (40-110); Anion Gap 15 mmol/L (10-20); BUN (Urea Nitrogen) 92 mg/dL (9.8-20.1); Bilirubin, Total 0.7 mg/dL (0.2-1.2); Calc. Creatinine Clearance 31 mL/min (70-130); Calcium 6.6 mg/dL (7.8-10.44); Carbon Dioxide 24 mmol/L (22-29); Chloride 108 mmol/L (98-107); Globulin 1.8 g/dL (2.4-3.5); Glucose 154 mg/dL (70-105); Potassium 4.2 mmol/L (3.5-5.1); Protein, Total 4.9 g/dL (6.0-8.3); Sodium 143 mmol/L (136-145)
[2021-04-18 05:40] LABS: Band 35 % (5-11); Hemoglobin 7.2 g/dL (12.0-16.0); Lymphocytes 1 % (21-51); MDiff Complete? YES; Mean Corpuscular HGB CONC 33.9 g/dL (32.0-36.0); Mean Corpuscular Volume 85.4 fL (78.0-98.0); Mean Platelet Volume 10.9 fL (7.4-10.4); Neutrophil 64 % (42-75); Nucleated RBC 2 % (0); Platelet Count 63 thou/uL (130-400); Platelet Morphology Comment Appears Decreased; RBC Distribution Width 14.5 % (11.5-14.5); Red Blood Cell (RBC) Count 2.48 mill/uL (4.20-5.40); White Blood Cell (WBC) Count 25.7 thou/uL (4.8-10.8)
[2021-04-18] MEDS: methylPREDNISolone Sod Succ/PF 80 MG in Sodium Chloride 0.9% 250 ML 250 ML IVPB SCH (05:56)
[2021-04-18] MEDS: Sodium Bicarbonate 150 MEQ in Dextrose 5% in Water 1,000 ML IV SCH ×2 (06:17→16:17)
[2021-04-18 07:05] LABS: Actual Bicarbonate (HCO3a) 24.1 mEq/L (22-28); Base Excess (BEa) -0.6 mEq/L (-2.0 to +3.0); Carboxyhemoglobin (COHb) 0.9 gm% (0.0-3.0); Hemoglobin (Hb) 7.7 g/dL (12.0-16.0); Potassium - ABG Lab 4.03 mmol/L (3.70-5.30)
[2021-04-18 07:20] LABS: O2 Tension (PaO2), arterial 51.9 mmHg (80.0-100.0); Puncture Site RRA
[2021-04-18] MEDS: Metoclopramide HCl 10 MG/2 ML VIAL IVP SCH ×3 (08:23→20:23)
[2021-04-18] MEDS: Cefepime 1 GM in Sodium Chloride 0.9% 100 ML IVPB SCH ×2 (08:23→20:23)
[2021-04-18] MEDS: Ascorbic Acid 500 mg Chewable Tablet PER TUBE SCH ×2 (08:23→20:22)
[2021-04-18] MEDS: Senokot 8.6 MG TAB PO SCH ×2 (08:23→20:22)
[2021-04-18] MEDS: Zinc Sulfate 220 MG CAP PO SCH (08:23)
[2021-04-18] MEDS: Polyethylene Glycol 3350 17 GM Packet PER TUBE SCH (08:23)
[2021-04-18] MEDS: Ivermectin 3 MG TAB PO SCH (08:23)
[2021-04-18] MEDS: Famotidine/PF 20 mg/2ml Vial SLOW IVP SCH (08:23)
[2021-04-18] MEDS: Metoclopramide 10 MG/10 ML UDCUP PO SCH (09:12)
[2021-04-18] MEDS: Lantus 1000 UNITS/10 ML VIAL SC SCH ×2 (09:12→20:49)
[2021-04-18 10:27] LABS: Magnesium 2.2 mg/dL (1.6-2.6); Phosphorus 4.4 mg/dL (2.3-4.7)
[2021-04-18] MEDS ORDERED: Fentanyl CADD 100 ML ONE (12:13)
[2021-04-18] MEDS: Fentanyl CADD 100 ML IV SCH (12:14)
[2021-04-18 12:50] VITALS: BMI 31.6
[2021-04-18] MEDS: Lorazepam 2 MG/ML VIAL SLOW IVP PRN (17:50)
[2021-04-18 19:28] LABS: Hemoglobin 7.9 g/dL (12.0-16.0)
[2021-04-18] MEDS: Cholecalciferol 1,000 UNITS (25 MCG) TAB PER TUBE SCH (20:22)
[2021-04-19] MEDS: Sodium Bicarbonate 150 MEQ in Dextrose 5% in Water 1,000 ML IV SCH ×2 (01:58→13:12)
[2021-04-19] MEDS: Metoclopramide HCl 10 MG/2 ML VIAL IVP SCH ×3 (02:00→14:04)
[2021-04-19] MEDS: HumaLOG 300 UNITS/3 ML VIAL SC PRN ×4 (04:10→12:10)
[2021-04-19 04:51] LABS: ALT (SGPT) 9 U/L (8-55); AST (SGOT) 23 U/L (5-34); Albumin 3.1 g/dL (3.5-5.0); Alkaline Phosphatase 119 U/L (40-110); Anion Gap 13 mmol/L (10-20); BUN (Urea Nitrogen) 100 mg/dL (9.8-20.1); Bilirubin, Total 0.6 mg/dL (0.2-1.2); Calc. Creatinine Clearance 29 mL/min (70-130); Calcium 6.6 mg/dL (7.8-10.44); Carbon Dioxide 30 mmol/L (22-29); Chloride 101 mmol/L (98-107); Globulin 2.4 g/dL (2.4-3.5); Glucose 279 mg/dL (70-105); Potassium 4.2 mmol/L (3.5-5.1); Protein, Total 5.5 g/dL (6.0-8.3); Sodium 140 mmol/L (136-145)
[2021-04-19 04:52] LABS: Hemoglobin 8.9 g/dL (12.0-16.0); Mean Corpuscular HGB CONC 33.6 g/dL (32.0-36.0); Mean Corpuscular Hemoglobin 29.2 pg (27.0-31.0); Mean Platelet Volume 11.5 fL (7.4-10.4); Platelet Count 74 thou/uL (130-400); RBC Distribution Width 15.2 % (11.5-14.5); Red Blood Cell (RBC) Count 3.05 mill/uL (4.20-5.40); White Blood Cell (WBC) Count 40.2 thou/uL (4.8-10.8)
[2021-04-19 05:30] LABS: Band 23 % (5-11); MDiff Complete? YES; Monocytes 2 % (0-10); Neutrophil 75 % (42-75); Platelet Morphology Comment Appears Decreased; Polychromasia SLIGHT = 2-3 cells (100X) (0-2/hpf)
[2021-04-19] MEDS: Propofol 1,000 MG/100 ML VIAL IV PRN (05:56)
[2021-04-19 07:17] LABS: Actual Bicarbonate (HCO3a) 28.1 mEq/L (22-28); CO2 Tension 59.4 mmHg (35.0-45.0); Calcium, Ionized (arterial) 0.88 mmol/L (1.12-1.30); Carboxyhemoglobin (COHb) 0.9 gm% (0.0-3.0); Hemoglobin (Hb) 8.8 g/dL (12.0-16.0); Potassium - ABG Lab 4.08 mmol/L (3.70-5.30); pH, Arterial 7.29 (7.35-7.45)
[2021-04-19 07:48] LABS: O2 Tension (PaO2), arterial 56.4 mmHg (80.0-100.0); Puncture Site RRA
[2021-04-19] MEDS: methylPREDNISolone Sod Succ/PF 80 MG in Sodium Chloride 0.9% 250 ML 250 ML IVPB SCH (08:05)
[2021-04-19] MEDS ORDERED: Lidocaine 1% (PF) 30 ML VIAL ONE (08:37)
[2021-04-19] MEDS ORDERED: Famotidine/PF 20 mg/2ml Vial SLOW IVP SCH (09:00)
[2021-04-19] MEDS ORDERED: Lidocaine 1% (PF) 30 ML VIAL SC SCH (09:15)
[2021-04-19] MEDS ORDERED: Fentanyl CADD 100 ML ONE (09:19)
[2021-04-19] MEDS: Fentanyl CADD 100 ML IV SCH (09:24)
[2021-04-19] MEDS: Polyethylene Glycol 3350 17 GM Packet PER TUBE SCH (09:25)
[2021-04-19] MEDS: Senokot 8.6 MG TAB PO SCH (09:25)
[2021-04-19] MEDS: Cefepime 1 GM in Sodium Chloride 0.9% 100 ML IVPB SCH (09:25)
[2021-04-19] MEDS: Ascorbic Acid 500 mg Chewable Tablet PER TUBE SCH (09:26)
[2021-04-19] MEDS: Zinc Sulfate 220 MG CAP PO SCH (09:26)
[2021-04-19] MEDS: Lantus 1000 UNITS/10 ML VIAL SC SCH (09:40)
[2021-04-19] MEDS: Ivermectin 3 MG TAB PO SCH (09:40)
[2021-04-19 12:19] VITALS: TEMP 97.7
[2021-04-19 13:27] LABS: Hemoglobin 6.5 g/dL (12.0-16.0); Mean Corpuscular HGB CONC 33.4 g/dL (32.0-36.0); Mean Corpuscular Volume 86.9 fL (78.0-98.0); Mean Platelet Volume 11.3 fL (7.4-10.4); Platelet Count 60 thou/uL (130-400); RBC Distribution Width 14.8 % (11.5-14.5); Red Blood Cell (RBC) Count 2.23 mill/uL (4.20-5.40)
[2021-04-19 13:53] LABS: Anisocytosis SLIGHT = 6-15 cells (100X) (0-5/hpf); Band 44 % (5-11); Large Platelets SLIGHT; MDiff Complete? YES; Monocytes 1 % (0-10); Neutrophil 54 % (42-75); Nucleated RBC 1 % (0); Platelet Morphology Comment Appears Decreased; Polychromasia MODERATE = 3-4 cells (100X) (0-2/hpf); Reactive Lymphocytes 1 % (0-10); Schistocytes SLIGHT = 2-5 cells (100X) (0-1/hpf); Target Cells SLIGHT = 2-5 cells (100X) (0-1/hpf); Toxic Granulation SLIGHT; White Blood Cell (WBC) Count 33.8 thou/uL (4.8-10.8)
[2021-04-19] MEDS: Norepinephrine 8 MG/0.9% NS 250 ML IVPB SCH (14:53)
== END 2021-04-19 04:03 | disposition expired | DRG 870 ==
LOC: ERS 10:30 → IMCU/EMU 14:50 → T4-A 04-09 15:53 → IMCU/EMU 04-10 20:48 → CCU 04-11 10:54
PROVIDERS: ADMIT Emergency Medicine; ATTEND Emergency Medicine
PROC: 8E0ZXY6 Isolation (ICD-10-PCS; 2021-04-08)
PROC: 5A09357 Assistance with Respiratory Ventilation, Less than 24 Consecutive Hours, Continuous Positive Airway Pressure (ICD-10-PCS; 2021-04-10)
PROC: 5A1955Z Respiratory Ventilation, Greater than 96 Consecutive Hours (ICD-10-PCS; principal; 2021-04-11)
PROC: 0BH17EZ Insertion of Endotracheal Airway into Trachea, Via Natural or Artificial Opening (ICD-10-PCS; 2021-04-11)
PROC: 04HL33Z Insertion of Infusion Device into Left Femoral Artery, Percutaneous Approach (ICD-10-PCS; 2021-04-12)
PROC: 02HV33Z Insertion of Infusion Device into Superior Vena Cava, Percutaneous Approach (ICD-10-PCS; 2021-04-12)
PROC: B548ZZA Ultrasonography of Superior Vena Cava, Guidance (ICD-10-PCS; 2021-04-12)
PROC: 0W9B3ZZ Drainage of Left Pleural Cavity, Percutaneous Approach (ICD-10-PCS; 2021-04-14)
PROC: 0W9B00Z Drainage of Left Pleural Cavity with Drainage Device, Open Approach (ICD-10-PCS; 2021-04-15)
PROC: 30233N1 Transfusion of Nonautologous Red Blood Cells into Peripheral Vein, Percutaneous Approach (ICD-10-PCS; 2021-04-15)
PROC: 3E033XZ Introduction of Vasopressor into Peripheral Vein, Percutaneous Approach (ICD-10-PCS; 2021-04-15)
PROC: 0W9900Z Drainage of Right Pleural Cavity with Drainage Device, Open Approach (ICD-10-PCS; 2021-04-19)
DX: A41.89 Other specified sepsis (principal); U07.1 COVID-19; E10.10 Type 1 diabetes mellitus with ketoacidosis without coma; J12.82 Pneumonia due to coronavirus disease 2019; J96.01 Acute respiratory failure with hypoxia; J15.6 Pneumonia due to other Gram-negative bacteria; N17.0 Acute kidney failure with tubular necrosis; J86.0 Pyothorax with fistula; E46 Unspecified protein-calorie malnutrition; Z16.29 Resistance to other single specified antibiotic; J94.2 Hemothorax; R65.20 Severe sepsis without septic shock; Z51.5 Encounter for palliative care; Z66 Do not resuscitate; E87.6 Hypokalemia; D69.6 Thrombocytopenia, unspecified; D64.9 Anemia, unspecified; E86.0 Dehydration; Z68.31 Body mass index [BMI] 31.0-31.9, adult; Z78.1 Physical restraint status
CPT/HCPCS: 36415; 36416; 36430; 36600; 71045; 71250; 71275; 80053; 80202; 81001; 82010; 82553; 82570; 82728; 82805; 83036; 83615; 83735; 84100; 84145; 84300; 84484; 85007; 85025; 85027; 85379; 86140; 86850; 86900; 86901; 87040; 87070; 87077; 87086; 87186; 87205; 93005; 93010; 94002; 94003; 94660; 96365; 96366; 96368; J0330; J0692; J1100; J1650; J1815; J1940; J1956; J2001; J2060; J2250; J2543; J2704; J2765; J2930; J3010; J3370; J3475; J3480; J3490; J7030; J7050; J7070; J7120; P9016; P9045; P9047; Q9967; S0028